=== PATIENT | male | born 1970 | race African-American/Black ===

== ENCOUNTER 2023-07-02 06:33 | Emergency (ER) | payer OTHER, SELFPAY ==
[2023-07-02 06:44] VITALS: BP 124/80; PULSE 90; RESP 20; TEMP 36.9; O2SAT 96; BMI 32.7
--- NOTE | 2023-07-02 08:59 | PC.NURSE ---
patient came to [facility]on[facility] RN, lac bleeding through paper towels he had wrapped around finger. new DSD applied. lac actively bleeding. patient placed in pivot 2
--- NOTE | 2023-07-02 10:02 | ED_ITS ---
HPI - Wound/Laceration General Chief Complaint: Wound/Laceration Stated Complaint: lac on finger Time Seen by Provider: 07/02/23 09:12 History of Present Illness HPI narrative: Patient complains of skin avulsion 14 hours ago at home when he was slicing some fruit, he applied pressure and the bleeding. But when he woke up this morning it was bleeding again No numbness weakness or tingling no redness no swelling no discharge no problem bending or moving his fingers Related Data Allergies Allergy/AdvReac Type Severity Reaction Status Date / Time No Known Allergies Allergy Verified 07/02/23 06:48 [facility] Past Medical History Source: nursing notes reviewed Social History Social History Advance Directives: No Advance Directives Information Provided: No Physical Exam Vital Signs: Vital Signs: Last Vital Signs Temp 98.4 F 07/02/23 06:44 Pulse 90 07/02/23 06:44 Resp 20 07/02/23 06:44 BP 124/80 07/02/23 06:44 Pulse Ox 96 07/02/23 06:44 O2 Del Method Room Air 07/02/23 06:44 BMI result Body Mass Index 32.7 General appearance comfortable cooperative no distress Exam he is A&O x3 Neck is supple Respiratory no distress Extremities full range of motion x4 including left index finger which in palmar distal phalanx has a skin avulsion about a 3rd the size of a dime on the finger tip otherwise the finger is normal with normal tendon function normal sensation normal extension and flexion, neurovascular intact Course Course Course Narrative: Left index finger skin avulsion is cleansed and irrigated with normal saline Surgicel dressing is applied and bleeding control and patient is discharged Discharge Plan Discharge Clinical Impression: Avulsion of skin Patient Disposition: Home, Self-Care Additional Instructions: A small piece of skin was cut off from the fingertips so I could not suture it We applied a Surgicel dressing which has a clotting material A small amount of blood staining is okay I would leave the dressing in place for at least 24 hours The clotting material will stick to the wound and does not have to be removed, it will fall off on its own If you develop heavy bleeding or any worse condition or any concerns return to the ER any time If wound is failing to heal you can follow with hand doctor Referrals: Breanne Basurto MD [Physician] - (Skin avulsion of finger) Stand Alone Forms: Work/School Release
== END 2023-07-02 10:33 | disposition home or self-care (01) ==
PROVIDERS: Emergency Provider Emergency Medicine
DX: S61.201A Unspecified open wound of left index finger without damage to nail, initial encounter (principal); W26.0XXA Contact with knife, initial encounter; Y93.9 Activity, unspecified; Y92.9 Unspecified place or not applicable; Y99.9 Unspecified external cause status
CPT/HCPCS: 12001; 99282; 99284